=== PATIENT | male | born 1930 | race Caucasian/White ===

== ENCOUNTER 2019-10-03 15:21 | Inpatient (IN) | payer MEDICARE, MEDICAID ==
[~2019-10-03] VITALS: Ht 180.3 cm; Wt 59.9 kg
[2019-10-03] MEDS ORDERED: LORA-999 PO (16:05)
[2019-10-03] MEDS ORDERED: TRAZ-252 PO (16:05)
[2019-10-03] MEDS ORDERED: VALP250C48 PO (16:05)
[2019-10-03] MEDS ORDERED: ACET500C4 PO (16:05)
[2019-10-03] MEDS ORDERED: OMEP20 PO (16:05)
[2019-10-03 16:06] LABS: GLUCOSE,POINT OF CARE 154 MG/DL (70-110)
[2019-10-03] MEDS ORDERED: SODIUM CHLORIDE 0.9% 1,000 ML IV ONE (16:12)
[2019-10-03] MEDS ORDERED: ACETAMINOPHEN 325 MG TABLET PO ONE (16:15)
[2019-10-03 16:42] LABS: HEMOGLOBIN 10.9 g/dL (13.5-17.5); MEAN CORPUSCULAR HEMOGLOBIN 32.2 pg (26.0-34.0); MEAN CORPUSCULAR VOLUME 95 fL (80-100); PLATELET COUNT (AUTO) 133 K/uL (150-450); RED BLOOD CELL COUNT(AUTO) 3.38 MIL/uL (4.50-5.90); RED CELL DISTRIBUTION WIDTH 13.4 % (11.5-14.5)
[2019-10-03 16:51] LABS: CALCIUM, TOTAL 9.3 mg/dL (8.8-10.5); CREATININE 1.98 mg/dL (0.60-1.30); POTASSIUM 5.3 mmol/L (3.5-5.1)
[2019-10-03 17:00] LABS: LACTIC ACID 1.4 mmol/L (0.4-2.0)
[2019-10-03 17:06] LABS: INFLUENZA TYPE A NEGATIVE FOR TYPE A (NEGATIVE); INFLUENZA TYPE B NEGATIVE FOR TYPE B (NEGATIVE)
[2019-10-03 17:09] LABS: PROTHROMBIN TIME 11.4 SEC (9.4-11.6)
[2019-10-03 17:10] LABS: INR 1.1 (0.9-1.1)
[2019-10-03 17:17] LABS: ALBUMIN 2.9 g/dL (3.4-5.0); BILIRUBIN,TOTAL 0.4 mg/dL (0.1-1.0); TOTAL PROTEIN, SERUM 6.1 g/dL (6.4-8.2)
[2019-10-03 17:21] LABS: BAND NEUTROPHILS % (MANUAL) 15 % (0-5); LYMPHOCYTES % (MANUAL) 3 % (22-44); MONOCYTES % (MANUAL) 4 % (2-9); SEGMENTED NEUTROPHILS % 78 % (40-70)
[2019-10-03] MEDS ORDERED: PIPERACILLIN/TAZO 3.375 GM/D5W 50 ML IV ONE (17:45)
[2019-10-03] MEDS ORDERED: LEVOFLOXACIN 500 MG/D5% WATER 100 ML IV ONE (17:45)
[2019-10-03 18:28] LABS: APPEARANCE,URINE CLOUDY (CLEAR); BILIRUBIN,URINE NEGATIVE (NEGATIVE); GLUCOSE, URINE (UA) NEGATIVE (NEGATIVE); KETONES,URINE NEGATIVE (NEGATIVE); LEUKOCYTE ESTERASE ,URINE LARGE (NEGATIVE); NITRATE,URINE NEGATIVE (NEGATIVE); OCCULT BLOOD,URINE LARGE (NEGATIVE); PROTEIN,URINE TRACE (NEGATIVE); UROBILINOGEN,URINE 0.2 mg/dL (<=1.0)
[2019-10-03 18:57] LABS: BACTERIA,URINE Many /HPF (None Seen); SQUAMOUS EPITHELIAL CELL,UR Few /LPF (None Seen)
[2019-10-03] MEDS ORDERED: ONDANSETRON HCL 4 MG/2 ML VIAL IVP PRN (19:30)
[2019-10-03] MEDS ORDERED: ACETAMINOPHEN 325 MG TABLET PO PRN (19:30)
[2019-10-03 22:53] VITALS: BP 108/56
[2019-10-04 00:11] VITALS: BP 99/53
[2019-10-04] MEDS ORDERED: 0.9% SODIUM CHLORIDE 10 ML SYRINGE IVP PRN (02:30)
[2019-10-04] MEDS ORDERED: SODIUM CHLORIDE 0.9% 1,000 ML IV SCH (02:30)
[2019-10-04] MEDS ORDERED: ACETAMINOPHEN 325 MG TABLET PO PRN (02:30)
[2019-10-04] MEDS ORDERED: MAGNESIUM HYDROXIDE SUSPENSION 30 ML UDCUP PO PRN (02:30)
[2019-10-04] MEDS ORDERED: OxyCODONE HCL/ACETAMINOPHEN 5-325 MG TABLET PO PRN ×2 (02:30)
[2019-10-04] MEDS ORDERED: MAGNESIUM CITRATE 300 ML ORAL SOLUTION PO ONE (02:45)
[2019-10-04] MEDS ORDERED: PIPERACILLIN SODIUM/TAZOBACTAM 2.25 GM in DEXTROSE 5%-WATER 50 ML IV SCH ×2 (03:00→12:00)
[2019-10-04 04:19] VITALS: BP 97/56
[2019-10-04 07:37] VITALS: BP 90/52
[2019-10-04] MEDS ORDERED: FAMOTIDINE 10 MG/ML 2 ML VIAL IVP SCH (09:00)
[2019-10-04] MEDS ORDERED: DOCUSATE SODIUM 100 MG CAPSULE PO SCH (09:00)
[2019-10-04] MEDS ORDERED: LEVOFLOXACIN 250 MG TABLET PO SCH (09:00)
[2019-10-04 10:56] VITALS: BP 101/55
[2019-10-04] MEDS ORDERED: SODIUM CHLORIDE 0.9% 500 ML IV SCH (11:00)
[2019-10-04] MEDS ORDERED: DOCU-275 PO (14:20)
[2019-10-04] MEDS ORDERED: FAMO20 PO (14:21)
[2019-10-04] MEDS ORDERED: LEVO250T75 PO (14:22)
[2019-10-04] MEDS ORDERED: PIPE2.2515 IV (14:23)
[2019-10-04] MEDS ORDERED: SODI500I5 IV (14:24)
[2019-10-04] MEDS ORDERED: MOM30 PO (14:25)
[2019-10-04] MEDS ORDERED: ACET-2247 PO (14:25)
[2019-10-04] MEDS ORDERED: PERCT PO (14:29)
== END 2019-10-04 17:10 | disposition short-term general hospital (02) | DRG 871 ==
LOC: EMS 15:28 → 5S 20:30 → EDBD 20:30
PROVIDERS: ADMIT Internal Medicine; ATTEND Internal Medicine
DX: A41.9 Sepsis, unspecified organism (principal); J18.9 Pneumonia, unspecified organism; N39.0 Urinary tract infection, site not specified; E87.1 Hypo-osmolality and hyponatremia; N17.9 Acute kidney failure, unspecified; E86.0 Dehydration; N13.9 Obstructive and reflux uropathy, unspecified; F03.90 Unspecified dementia, unspecified severity, without behavioral disturbance, psychotic disturbance, mood disturbance, and anxiety; Z66 Do not resuscitate; I50.9 Heart failure, unspecified; I11.0 Hypertensive heart disease with heart failure; E11.9 Type 2 diabetes mellitus without complications; F32.9 Major depressive disorder, single episode, unspecified; R56.9 Unspecified convulsions; J43.9 Emphysema, unspecified; D64.9 Anemia, unspecified; Z79.899 Other long term (current) drug therapy
CPT/HCPCS: 51702; 74176; 83605; 87040; 87081; 87086; 87205; 87804; 93005; 99291; J2543; J3490; J7030; J7040; J7060